=== PATIENT | male | born 1965 | race Caucasian/White ===

== ENCOUNTER 2025-02-25 07:03 | Emergency (ER) | payer OTHER ==
[~2025-02-25] VITALS: Ht 165.1 cm; Wt 84.5 kg
[2025-02-25 07:11] VITALS: O2SAT 99
[2025-02-25] MEDS ORDERED: OFLO5DRO4 RIGHT EAR (08:02)
[2025-02-25 08:10] VITALS: BP 168/98; PULSE 82; RESP 18; TEMP 36.8; O2SAT 99
== END 2025-02-25 08:11 | disposition home or self-care (01) ==
LOC: ER 07:03
DX: H60.8X1 Other otitis externa, right ear (principal); E78.00 Pure hypercholesterolemia, unspecified; I10 Essential (primary) hypertension
CPT/HCPCS: 99283